=== PATIENT | female | born 1995 | race Caucasian/White ===

== ENCOUNTER 2017-03-14 23:22 | Emergency (ER) | payer OTHER ==
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
[2017-03-14 23:37] VITALS: PULSE 72; TEMP 98.1
[2017-03-14] MEDS ORDERED: ONDANSETRON 4 MG/2 ML VIAL IVP ONE (23:38)
[2017-03-14] MEDS ORDERED: NS 1,000 ML IV ONE (23:46)
[2017-03-15 00:58] VITALS: BP 109/72; RESP 18; O2SAT 94
== END 2017-03-15 00:58 | disposition home or self-care (01) ==
DX: F10.99 Alcohol use, unspecified with unspecified alcohol-induced disorder (principal)
CPT/HCPCS: 96374; J2405